=== PATIENT | female | born 1965 | race African-American/Black ===

== ENCOUNTER 2018-10-20 06:19 | Day surgery (SDC) | payer OTHER ==
[~2018-10-20] VITALS: Ht 175.3 cm; Wt 72.7 kg
[2018-10-20] VITALS (13 sets, daily range): BP systolic 114–153; BP diastolic 57–89; PULSE 50–84; RESP 15–22; Ht 175.3 cm; Wt 72.7 kg
--- NOTE | 2018-10-20 07:55 | PREAC ---
Date/Time of Note Date/Time of Note DATE: 10/20/18 TIME: 07:52 Anesthesia Eval and Record Evaluation Time Pre-Procedure Interview DATE: 10/20/18 TIME: 07:52 Age 53 Sex female NPO: 8 hrs Preoperative diagnosis hammertoe deformity 1st through 5th toe left foot Planned procedure surgical correction hammertoe deformity 1st through 5th toe left foot Past Medical History Past Medical History: Includes (HIV, MS, PML, LEFT HEMIPLEGIA) Neuro: CVA, Seizure disorder Psych: Depression Infection(s): HIV Surgery & Anesthesia Issues No known issue Meds Anticoagulation: No Beta Toby within 24 hr: No Reason Beta Toby not given: Pt. not on B-Toby Meds reviewed: Yes Allergies Coded Allergies: No Known Allergy (Unverified , 10/19/18) Allergies Reviewed: Yes Labs/Studies Labs Reviewed: Reviewed by anesthesiologist test: N/A Studies: ECG (NL) Pre-procedure Exam Last vitals Vital Signs Date Temp Pulse Resp B/P (MAP) Pulse Ox O2 O2 Flow FiO2 Time Delivery Rate 10/20/18 98.2 71 18 114/80 100 Room Air 07:45 (91) Airway: Adequate mouth opening, Adequate thyromental dist Mallampati: Mallampati II Teeth: Normal Lung: Normal Heart: Normal ASA Physical Status ASA physical status: 3 Emergency: None Planned Anesthetic General/MAC: ETT Planned Pain Management Parenteral pain med Pre-operative Attestations Prior to commencing anesthesia and surgery, the patient was re-evaluated, there was verification of: *The patient's identity *The results of appropriate recent lab work and preoperative vital signs *The above evaluation not changing prior to induction *Anesthetic plan, risk benefits, alternative and complications discussed with patient/family; questions answered; patient/family understands, accepts and wishes to proceed. Stefan Haq M.D. Oct 20, 2018 07:55
[2018-10-20] MEDS ORDERED: ELVI1TAB3 ORAL (07:59)
[2018-10-20] MEDS ORDERED: TIZA4CAP6 PO (07:59)
[2018-10-20] MEDS ORDERED: LORA-441 PO (07:59)
[2018-10-20] MEDS ORDERED: TRA100 PO (07:59)
[2018-10-20] MEDS ORDERED: LIDOCAINE 2% (MDV) 20 ML INJ ONE (08:13)
[2018-10-20] MEDS ORDERED: BUPIVACAINE 0.5% (SDV) 30 ML INJ ONE (08:13)
[2018-10-20] MEDS ORDERED: TRIAMCINOLONE ACET 40 MG/ML INJ ONE (08:14)
[2018-10-20] MEDS ORDERED: DEXAMETHASONE 4 MG/ML 1 ML INJ ONE (08:14)
[2018-10-20] MEDS ORDERED: ROCURONIUM 50 MG INJ ONE (08:19)
[2018-10-20] MEDS ORDERED: CEFAZOLIN 1 GM INJ ONE (08:19)
[2018-10-20] MEDS ORDERED: NEOSTIGMINE 3 MG/3 ML SYRINGE ONE (08:19)
[2018-10-20] MEDS ORDERED: GLYCOPYRROLATE 0.4 MG INJ ONE (08:19)
[2018-10-20] MEDS ORDERED: PROPOFOL 20 ML ONE (08:19)
[2018-10-20] MEDS ORDERED: ONDANSETRON 4 MG INJ ONE (08:22)
[2018-10-20] MEDS ORDERED: MIDAZOLAM 1 MG/ML 2 ML INJ ONE (08:22)
[2018-10-20] MEDS ORDERED: DEXAMETHASONE 4 MG/ML 5 ML INJ ONE (08:22)
[2018-10-20] MEDS ORDERED: FENTAnyl 50 MCG/ML VIAL ONE (08:22)
[2018-10-20] MEDS ORDERED: LACTATED RINGER'S 1,000 ML IV SCH (08:30)
--- NOTE | 2018-10-20 08:30 | HPN ---
Date/Time of Note Date/Time of Note DATE: 10/20/18 TIME: 08:28 Interval H&P Admission Note Pt. seen H&P reviewed: No system changes Pt advised of risks, benefits, complications and alternative to sx. Pt agrees to proposed plan. Pt advised again that sx will only make her toes straight and will not change the way she walks. Pt has full understanding and agrees to proposed plan. Informed consent detailed to her with RN at bedside. Signed. KEV YOO DPM Oct 20, 2018 08:30
[2018-10-20] MEDS ORDERED: DIPHENHYDRAMINE 50 MG INJ IV PRN (09:00)
[2018-10-20] MEDS ORDERED: hydrALAzine 20 MG INJ IV PRN (09:00)
[2018-10-20] MEDS ORDERED: IPRATROPIUM (NEB) 0.5 MG/2.5 ML AMP HHN PRN (09:00)
[2018-10-20] MEDS ORDERED: ONDANSETRON 4 MG INJ IV PRN (09:00)
[2018-10-20] MEDS ORDERED: FENTAnyl 50 MCG/ML VIAL IV PRN ×3 (09:00)
[2018-10-20] MEDS ORDERED: TRIMETHOBENZAMIDE 100 MG/ML VIAL IM PRN (09:00)
[2018-10-20] MEDS ORDERED: EPHEDrine 25 MG/5 ML SYG IV PRN (09:00)
[2018-10-20] MEDS ORDERED: ALBUTEROL 0.083% (NEB) 2.5 MG/3 ML AMP HHN PRN (09:00)
[2018-10-20] MEDS ORDERED: MIDAZOLAM 1 MG/ML 2 ML INJ IV PRN (09:00)
[2018-10-20] MEDS ORDERED: LABETALOL HCL 20MG INJ IV PRN (09:00)
[2018-10-20] MEDS ORDERED: MEPERIDINE 25 MG INJ IV PRN (09:00)
--- NOTE | 2018-10-20 10:24 | SIPON ---
Date/Time of Note Date/Time of Note DATE: 10/20/18 TIME: 10:23 Operative Report Preoperative Diagnosis HAMMERTOES 1-5 LEFT FOOT. PAIN LEFT FOOT. Postoperative Diagnosis SAME Operation/Procedure Performed HAMMERTOE CORRECTION 1-5 LEFT FOOT WITH SCREW AND PINS. CAPSULE RELEASE 1-5 LEFT FOOT. Surgeon see signature line assistant buyer NONE Anesthesia: general Estimated blood loss: none Transfusion Required none Specimen BONE Grafts/Implants 3-0 SCREWS ADN 0.045 X 3 PINS Complications none KEV YOO DPM Oct 20, 2018 10:24
--- NOTE | 2018-10-20 11:26 | PAC ---
Date/Time of Note Date/Time of Note DATE: 10/20/18 TIME: 11:26 Post-Anesthesia Notes Post-Anesthesia Note Last documented vital signs Vital Signs Date Temp Pulse Resp B/P (MAP) Pulse Ox O2 O2 Flow FiO2 Time Delivery Rate 10/20/18 54 17 153/71 100 Room Air 10:53 (98) 10/20/18 98.0 10:28 Activity: WNL Respiratory function: WNL Cardiovascular function: WNL Mental status: Baseline Pain reasonably controlled: Yes Hydration appropriate: Yes Nausea/Vomiting absent: Yes Stefan Haq M.D. Oct 20, 2018 11:26
--- NOTE | 2018-10-26 19:57 | OPR ---
DATE OF OPERATION: 10/20/2018 PREOPERATIVE DIAGNOSES: 1. Painful hammertoe deformity, left hallux. 2. Painful clawtoe deformity, second toe, left foot. 3. Painful claw deformity, third toe, left foot. 4. Painful claw deformity, fourth toe, left foot. 5. Painful hammertoe deformity, fifth toe, left foot. POSTOPERATIVE DIAGNOSIS: 1. Painful hammertoe deformity, left hallux. 2. Painful clawtoe deformity, second toe, left foot. 3. Painful claw deformity, third toe, left foot. 4. Painful claw deformity, fourth toe, left foot. 5. Painful hammertoe deformity, fifth toe, left foot. OPERATION PERFORMED: 1. Arthrodesis of the left hallucal interphalangeal joint with screw fixation. 2. Arthrodesis of the second toe proximal interphalangeal joint, left foot with K wire fixation. 3. Capsulotomy and arthroplasty of the second toe distal interphalangeal joint, left foot. 4. Arthrodesis of the third toe proximal interphalangeal joint with K wire fixation. 5. Arthroplasty and capsulotomy of the third toe distal interphalangeal joints. 6. Arthrodesis of the fourth toe proximal interphalangeal joint with K wire fixation. 7. Arthroplasty and capsulotomy of the fourth toe distal interphalangeal joints. 8. Arthroplasty of the fifth toe, left foot proximal interphalangeal joint. SURGEON: Kev Girard DPM HAND LASTER: None. ANESTHESIA: IV sedation. COMPLICATIONS: None. IMPLANTS: 3.0 screw to the left great toe and K-wires to #2, #3, #4 toes of the left foot using 0.04 5 inch pin. HEMOSTASIS: Left ankle pneumatic tourniquet set at 200 mmHg. BLOOD LOSS: Less than 5 mL. INDICATION FOR PROCEDURE: The patient with longstanding history of neurological pathologies causing progressive hammertoe deformity of the first, second, third, fourth and fifth toes of the left foot. Conservative management including physical therapy has failed to improve her condition. The patient has opted to undergo surgical management of her deformities understanding risks and benefits and com plications of the surgery. No guarantees or warranties as to the outcome of surgery have been implie d or given to the patient, the patient's or mother. I have advised the patient that today's procedure will only straighten her toes and will not alter gait pattern. The patient has difficulty walking on her toes and would like her to be straight, so she could walk better. The procedure will make it was better at today's work for her deformity causing her forefoot pain. It will not address the chronic deformity nor any other pathology as relates to the neuromuscular condition that she had. Informed consent has been signed, witnessed. Possible risk of surgery include delayed healing, non healing infection, necrosis, gangrene and osteomyelitis has been discussed with her, her and mother. DESCRIPTION OF PROCEDURE: The patient was brought to the OR, placed on the OR table in a supine posi tion. Anesthesia achieved and then local anesthetic block and 0.5% Marcaine, 2% plain lidocaine admi nistered to the left ankle. The left foot and ankle were then prepped and draped in the usual steril e fashion. The left foot was elevated for several minutes to aid in exsanguination before instillation of the le ft ankle pneumatic tourniquet to 250 mmHg. PROCEDURE #1: Attention was directed to the left great toe. Using a #15 blade, a dorsal incision wa s created over the contracted left great toe. Tension was carefully deepened over the joint capsule. The neurovascular bundle was retracted medially and laterally. Small crossing vessel was cauterize d. Next, using a 15 blade, a dorsal incision was created in transverse fashion over the hallux inter phalangeal joint. Next, using [place] blade, capsule was reflected off the head of the proximal phala nx. Using sagittal saw, the head of the proximal phalanx was resected. Next, attention was directed to the base of distal phalanx. Using [place] blade, the capsule was reflected off the base of distal phalanx. Using sagittal saw, the cartilage on the base of the distal phalanx was resected and remov ed. Next, the area was copiously irrigated. At this point, attention was directed to the hallux int erphalangeal joint using standard manufacture technique, a 3.0 cannulated screw was inserted across t he hallucal interphalangeal joints. The screw was supplied by [employer]. Upon insertion of the screw, there was reduction of the hammertoe deformity to the hallux interphalangeal joint. PROCEDURE #2: Attention was directed to the second toe, left foot. Using a 15 blade, a dorsal incis ion was created over the second toe proximal interphalangeal joint. This was carefully deepened over the joint capsule. Neurovascular bundle was reflected medially and laterally. Using a [place] blade , an incision in transverse fashion was clear of the second toe proximal interphalangeal joint. Next , the joint capsule was reflected off the head of the proximal phalanx. Using a sagittal saw , the p roximal phalanx were resected. At this point, attention was directed to the base of the intermediate phalanx. Using [place] blade, the joint capsule was reflected off the base of the intermediate phala nx. Next, using a sagittal saw, the cartilage on the base of the intermediate phalanx was also resec alvarado and then no reduction of the hammertoe deformity. There was contracture at the level of the seco nd toe distal interphalangeal joint. Using a [place] blade, an incision was created in the lateral as pect of this interphalangeal joint. It was carefully extended to the joint capsule. Release of the tendon capsule was performed along with arthroplasty of the second toe distal interphalangeal joint. Next a K-wire was retrograded into the second toe from distal to proximal interphalangeal joint. Pr esentation of the K-wire was reduction of hammertoe deformity. Attention was directed to the third toe of the left foot. Similar to the second toe, a dorsal linear incision was created over the second toe proximal interphalangeal joint. The joint was carefully de epened through the third toe over the joint capsule. Neurovascular bundle was retracted superiorly, medially and laterally. Next, using a [place] blade, an incision was created over the superior aspect of third toe in transverse fashion at the proximal interphalangeal joint. Upon incision of the join t capsule, reflection of the capsule was performed over the third toe. Head of proximal phalanx to e xpose the surgical field. Using sagittal saw, the proximal phalanx was resected. Next, attention wa s directed to the base of the intermediate phalanx. Joint capsule was reflected using a [place] blade . Using sagittal saw, the base of the intermediate phalanx was resected as well. Next, attention wa s directed to the third toe at this interphalangeal joint. Using [place] blade, an incision was creat ed over the distal interphalangeal joint, laterally. The joint capsule and tendon was then severed w ith an arthroplasty of the third toe distal interphalangeal joint. Next, two 0.045 K-wire was insert ed across the third toe in retrograde fashion. Upon deflation of the white. There was reduction of the hammertoe deformity of the 3rd toe of the left foot. Attention was directed to the fourth toe of the left foot. Similar to the second and third toes, a d orsal incision was created and extended at the level of joint capsule of the proximal interphalangeal joint. Neurovascular bundle was reflected and using a [place] blade, a transverse incision was creat ed over the fourth toe proximal interphalangeal joint. The joint capsule was then reflected and the head of the proximal stomach was exposed in the surgical field. Using a sagittal saw, the fourth toe proximal phalangeal joint was resected. Using [place] blade, the base of the fourth toe joint capsul e was reflected for attachment. Next, using the sagittal saw, the base of the fourth toe intermediat e phalanx was resected. Attention was then made to the fourth toe, the interphalangeal joint. Using a [place] blade, an incision was created at the lateral aspect of the joint. This was carefully exte nded to the fourth toe. Dictated By: KEV FRANCO/ASHU Conf#: [id number] DID#: [id number]
== END 2018-10-20 12:20 | disposition home or self-care (01) ==
LOC: SDS 06:19
PROVIDERS: ATTEND Podiatrist Foot & Ankle Surgery
DX: M20.42 Other hammer toe(s) (acquired), left foot (principal); M20.5X2 Other deformities of toe(s) (acquired), left foot; Z86.73 Personal history of transient ischemic attack (TIA), and cerebral infarction without residual deficits
CPT/HCPCS: 28285; 28899; 71045; 73630; 88304; 88311; J0690; J1100; J2250; J2405; J3010; J2710